=== PATIENT | male | born 1960 | race Caucasian/White ===

== ENCOUNTER 2020-11-14 03:38 | Observation (INO) | payer OTHER ==
[~2020-11-14] VITALS: Ht 195.6 cm; Wt 139.3 kg
[2020-11-14] VITALS (7 sets, daily range): BP systolic 138–165; BP diastolic 86–96
[~2020-11-14 03:38] MED LIST: AMLODIPINE BESYL5 MG PO; BENICAR20 MG PO; CHANTIX0.5 MG PO; CLINDAMYCIN HC150 MG PO; CRESTOR10 MG PO; FENOFIBRATE145 MG PO; JANUMET 50-1,01 EACH PO; LISINOPRIL10 MG PO; LYRICA300 MG; SOLIQUA 100 UNIT3 ML SQ; Z.0.PROZAC20 MG; Z.1.PHENTERMINE H37.
[2020-11-14 04:04] LABS: BASOPHILS # (AUTO) 0.1 (0.0-0.1); BASOPHILS % 0.8 % (0.0-1.0); EOSINOPHILS # (AUTO) 0.3 (0.0-0.4); EOSINOPHILS % 2.9 % (0.0-6.0); HEMATOCRIT 51.5 % (38.2-49.6); HEMOGLOBIN 17.1 g/dL (14.0-18.0); LYMPHOCYTES # (AUTO) 2.9 (1.0-3.2); LYMPHOCYTES % 33.2 % (18.0-39.1); MEAN CORPUSCULAR HEMOGLOBIN 29.8 pg (28-32); MEAN CORPUSCULAR HGB CONC 33.2 g/dL (31-35); MEAN CORPUSCULAR VOLUME 89.9 fL (81-99); MONOCYTES # (AUTO) 0.9 (0.2-0.8); NEUTROPHILS # (AUTO) 4.6 (2.1-6.9); NEUTROPHILS % 52.8 % (38.7-80.0); PLATELET COUNT 253 x10e3/uL (140-360); RED BLOOD COUNT 5.73 x10e6/uL (4.3-5.7); RED CELL DISTRIBUTION WIDTH 13.2 % (11.7-14.4)
[2020-11-14 04:46] LABS: ALBUMIN 4.3 g/dL (3.5-5.0); ALBUMIN/GLOBULIN RATIO 1.2 (0.8-2.0); ANION GAP 17.8 mmol/L (8-16); CALCIUM 9.5 mg/dL (8.4-10.2); CREATININE, SERUM 1.01 mg/dL (0.72-1.25); POTASSIUM 3.8 mmol/L (3.5-5.1)
[2020-11-14 04:52] LABS: CREATINE KINASE MB 2.7 ng/mL (0-5.0)
[2020-11-14] MEDS ORDERED: ASPIRIN 81 MG CHEW TAB PO ONE (05:45)
[2020-11-14] MEDS ORDERED: AMLODIPINE BESYLATE 10 MG TAB PO ONE (07:00)
[2020-11-14] MEDS ORDERED: MORPHINE SULFATE INJ 2 MG/ML SYR IV PRN (08:15)
[2020-11-14] MEDS ORDERED: KETOROLAC TROMETHAMINE 30 MG/ML VIAL IV PRN (11:45)
[2020-11-14] MEDS ORDERED: SIMVASTATIN10 MG PO (12:15)
[2020-11-14] MEDS ORDERED: SYNJARDY 12.5-1 EACH PO (12:15)
[2020-11-14 12:54] LABS: CREATINE KINASE MB 43.3 ng/mL (0-5.0)
[2020-11-14] MEDS ORDERED: CLOPIDOGREL BISULFATE 75 MG TAB PO ONE (13:15)
[2020-11-14] MEDS ORDERED: SODIUM CHLORIDE 0.9% 1000ML 1,000 ML IV SCH (13:30)
[2020-11-14] MEDS ORDERED: MIDAZOLAM HCL 2 MG/2 ML VIAL ONE (13:34)
[2020-11-14] MEDS ORDERED: HEPARIN SOD (PORCINE) 1000 UNIT/ML 30ML ONE (13:34)
[2020-11-14] MEDS ORDERED: LIDOCAINE HCL 2% LOCAL 20 ML VIAL ONE (13:35)
[2020-11-14] MEDS ORDERED: FENTANYL CITRATE/PF 100MCG/2 ML INJ ONE (13:35)
[2020-11-14] MEDS ORDERED: HEPARIN SOD/SOD CHLORIDE 2,000 ML ONE (13:35)
[2020-11-14] MEDS ORDERED: IOPAMIDOL 370 MG/ML 200 ML INFUS..BTL INJ ONE (13:36)
[2020-11-14] MEDS ORDERED: VERAPAMIL HCL 2.5 MG/ML 2 ML VIAL ONE (13:37)
[2020-11-14] MEDS ORDERED: NITROGLYCERIN/D5W 200 MCG/ML 250 ML ONE (13:37)
[2020-11-14] MEDS ORDERED: BIVALRIUDIN 250 MG/VIAL VIAL IV ONE (14:04)
[2020-11-14] MEDS ORDERED: SODIUM CHLORIDE 0.9% 50ML 50 ML ONE (14:04)
[2020-11-14] MEDS ORDERED: EPTIFIBATIDE 20 ML ONE (14:19)
[2020-11-14] MEDS ORDERED: MICARDIS80 MG PO (15:13)
[2020-11-14] MEDS ORDERED: GLIPIZIDE ER5 MG PO (15:13)
[2020-11-14] MEDS ORDERED: BUPROPION XL150 MG PO (15:13)
[2020-11-14] MEDS ORDERED: CHANTIX1 MG PO (15:13)
[2020-11-14] MEDS ORDERED: HYDROCHLOROTHIA50 MG PO (15:13)
[2020-11-14] MEDS: SODIUM CHLORIDE 0.9% 1000ML 1,000 ML IV SCH (15:15)
[2020-11-14] MEDS ORDERED: ONDANSETRON HCL INJ 2MG/ML 2ML 2 MG/ML VIAL IV PRN (15:15)
[2020-11-14] MEDS ORDERED: ACETAMINOPHEN 325 MG TAB PO PRN (15:15)
[2020-11-14] MEDS ORDERED: MORPHINE SULFATE INJ 4 MG/ML INJ 1ML IV PRN (15:15)
[2020-11-14] MEDS ORDERED: SOLIQUA 100 UNIT3 ML SQ (17:18)
[2020-11-14] MEDS: METOPROLOL TARTRATE 25 MG TAB PO SCH (17:21)
[2020-11-14] MEDS: HYDROCODONE/APAP 5MG-325MG TAB PO PRN (19:30)
[2020-11-14] MEDS ORDERED: DEXTROSE 50% SYRINGE 50 ML IV PRN (20:00)
[2020-11-14] MEDS ORDERED: AMLODIPINE BESYLATE 5 MG TAB PO SCH (21:00)
[2020-11-14] MEDS ORDERED: ATORVASTATIN 20 MG TAB PO SCH (21:00)
[2020-11-14] MEDS: INSULIN LISPRO 100 UNIT/1 ML 3ML VIAL SQ SCH (21:30)
[2020-11-15] VITALS: BP 111/54
[2020-11-15] MEDS: HYDROCODONE/APAP 5MG-325MG TAB PO PRN (01:50)
[2020-11-15] MEDS: SODIUM CHLORIDE 0.9% 1000ML 1,000 ML IV SCH (02:00)
[2020-11-15 04:00] VITALS: BP 139/87
[2020-11-15 05:54] LABS: BASOPHILS % 0.4 % (0.0-1.0); EOSINOPHILS # (AUTO) 0.1 (0.0-0.4); EOSINOPHILS % 0.7 % (0.0-6.0); HEMOGLOBIN 15.9 g/dL (14.0-18.0); LYMPHOCYTES # (AUTO) 1.5 (1.0-3.2); LYMPHOCYTES % 14.8 % (18.0-39.1); MEAN CORPUSCULAR HEMOGLOBIN 29.6 pg (28-32); MEAN CORPUSCULAR HGB CONC 33.1 g/dL (31-35); MEAN CORPUSCULAR VOLUME 89.2 fL (81-99); MONOCYTES # (AUTO) 0.9 (0.2-0.8); MONOCYTES % 9.2 % (4.4-11.3); NEUTROPHILS # (AUTO) 7.4 (2.1-6.9); NEUTROPHILS % 74.4 % (38.7-80.0); PLATELET COUNT 227 x10e3/uL (140-360); RED BLOOD COUNT 5.38 x10e6/uL (4.3-5.7); RED CELL DISTRIBUTION WIDTH 12.8 % (11.7-14.4)
[2020-11-15 06:17] LABS: ALBUMIN 3.8 g/dL (3.5-5.0); ALBUMIN/GLOBULIN RATIO 1.2 (0.8-2.0); ANION GAP 13.9 mmol/L (8-16); CALCIUM 8.4 mg/dL (8.4-10.2); CREATININE, SERUM 0.78 mg/dL (0.72-1.25); POTASSIUM 3.9 mmol/L (3.5-5.1)
[2020-11-15 07:20] VITALS: BP 127/78
[2020-11-15] MEDS ORDERED: INSULIN GLARGINE 100 UNITS/ML VIAL SQ SCH (07:30)
[2020-11-15] MEDS: INSULIN LISPRO 100 UNIT/1 ML 3ML VIAL SQ SCH (07:52)
[2020-11-15] MEDS: METOPROLOL TARTRATE 25 MG TAB PO SCH (07:53)
[2020-11-15] MEDS ORDERED: PREGABALIN 75 MG CAP PO SCH (09:00)
[2020-11-15] MEDS ORDERED: HYDROCHLOROTHIAZIDE 25 MG TAB PO SCH (09:00)
[2020-11-15] MEDS ORDERED: METFORMIN HCL PO SCH (09:00)
[2020-11-15] MEDS ORDERED: BUPROPION HCL 150 MG TABCR PO SCH (09:00)
[2020-11-15] MEDS ORDERED: [UNRECOGNIZED DRUG - OTHER] PO SCH (09:00)
[2020-11-15] MEDS ORDERED: CLOPIDOGREL BISULFATE 75 MG TAB PO SCH (09:00)
[2020-11-15] MEDS ORDERED: TELMISARTAN 40 MG TAB PO SCH (09:00)
[2020-11-15] MEDS ORDERED: VARENICLINE 1 MG TAB PO SCH (09:00)
[2020-11-15] MEDS ORDERED: EMPAGLIFLOZIN PO SCH (09:00)
[2020-11-16] MEDS ORDERED: ASPIRIN 81 MG ENTERIC COATED PO SCH (09:00)
== END 2020-11-15 11:10 | disposition home or self-care (01) ==
LOC: ER 03:49 → ERHOLD 07:03 → IMCU 11:16 → MED/SURG 15:26
PROVIDERS: ADMIT Family Medicine; ATTEND Family Medicine
DX: I21.4 Non-ST elevation (NSTEMI) myocardial infarction (principal); J44.9 Chronic obstructive pulmonary disease, unspecified; I10 Essential (primary) hypertension; E11.9 Type 2 diabetes mellitus without complications; Z88.8 Allergy status to other drugs, medicaments and biological substances; E66.01 Morbid (severe) obesity due to excess calories; E78.5 Hyperlipidemia, unspecified; Z79.4 Long term (current) use of insulin; Z82.49 Family history of ischemic heart disease and other diseases of the circulatory system; F17.210 Nicotine dependence, cigarettes, uncomplicated; Z72.0 Tobacco use; Z68.36 Body mass index [BMI] 36.0-36.9, adult
CPT/HCPCS: 36415 ×2; 71045; 76937; 80053 ×2; 80061; 82550; 82553; 82948 ×2; 84484; 85025 ×2; 92928; 93005 ×2; 93458; 99284; C1725; C1760; C1769; C1874; C1876; C1887 ×2; G0378 ×2; J0583; J1327; J1885; J2001; J2250; J2270; J2405; J3010; J7030; Q9967; U0002; 99152; 99153; J1644